=== PATIENT | male | born 1985 | race African-American/Black ===

== ENCOUNTER 2021-10-27 17:28 | Emergency (ER) | payer MEDICAID ==
[~2021-10-27] VITALS: Ht 172.7 cm; Wt 84.1 kg
[2021-10-27 18:23] LABS: BASOPHILS % (AUTO) 0.8 % (0.0-2.0); EOSINOPHILS % (AUTO) 10.4 % (1.0-6.0); HEMATOCRIT 43.5 % (41-53); HEMOGLOBIN 14.7 g/dL (13.5-17.5); LYMPHOCYTES # (AUTO) 2.3 K/uL (1.0-4.8); LYMPHOCYTES % (AUTO) 36.1 % (22.0-44.0); MEAN CORPUSCULAR HEMOGLOBIN 28.6 pg (26.0-34.0); MEAN CORPUSCULAR HGB CONC 33.8 G/dL (31.0-37.0); MEAN CORPUSCULAR VOLUME 85 fL (80-100); MONOCYTES # (AUTO) 0.8 K/uL (0.1-1.0); MONOCYTES % (AUTO) 12.8 % (2.0-9.0); NEUTROPHILS # (AUTO) 2.5 K/uL (1.8-7.7); NEUTROPHILS % (AUTO) 39.9 % (40.0-70.0); PLATELET COUNT (AUTO) 220 K/uL (150-450); RED BLOOD CELL COUNT(AUTO) 5.15 MIL/uL (4.50-5.90)
[2021-10-27 18:26] LABS: COVID AG,FIA SOURCE NASOPHARYNGEAL
[2021-10-27 18:32] LABS: ANION GAP 23 mmol/L (8-16); CALCIUM, TOTAL 9.8 mg/dL (8.8-10.5); CARBON DIOXIDE 25 mmol/L (22-29); CHLORIDE 100 mmol/L (98-107); CREATININE 0.86 mg/dL (0.60-1.30); GLUCOSE,RANDOM 100 mg/dL (70-110); POTASSIUM 4.2 mmol/L (3.5-5.1); SODIUM SERUM 148 mmol/L (136-145); UREA NITROGEN, BLOOD 15 mg/dL (7-18)
[2021-10-27 18:35] LABS: GLOMERULAR FILTR. RATE CALC > 60 mL/min (>60)
[2021-10-27 19:32] VITALS: BP 150/95
== END 2021-10-27 19:35 | disposition home or self-care (01) ==
LOC: EMS 17:36
DX: R06.09 Other forms of dyspnea (principal); Z20.822 Contact with and (suspected) exposure to COVID-19
CPT/HCPCS: 71045; 80048; 84484; 85025; 93005; 99285; 36415-L1; 36415-TC

== ENCOUNTER 2023-07-29 13:11 | Emergency (ER) | payer MEDICAID, OTHER ==
[~2023-07-29] VITALS: Ht 170.2 cm; Wt 78.2 kg
[2023-07-29 13:25] VITALS: BP 155/86; PULSE 88; RESP 14; TEMP 98.7
[2023-07-29 14:15] LABS: COVID AG,FIA SOURCE NASAL SWAB
[2023-07-29] MEDS ORDERED: ACET-66 PO (14:15)
[2023-07-29] MEDS ORDERED: IBUP-1554 PO (14:15)
[2023-07-29] MEDS ORDERED: CEPH-558 PO (14:15)
[2023-07-29 15:07] LABS: RAPID GROUP A STREP NEGATIVE (NEGATIVE)
[2023-07-29 15:12] LABS: SARS-COV2 (COVID) ANTIGEN,FIA Negative (Negative)
[2023-07-29 15:14] LABS: INFLUENZA TYPE A NEGATIVE FOR TYPE A (NEGATIVE); INFLUENZA TYPE B NEGATIVE FOR TYPE B (NEGATIVE)
== END 2023-07-29 14:30 | disposition home or self-care (01) ==
LOC: EMS 13:11
DX: H66.92 Otitis media, unspecified, left ear (principal); J02.9 Acute pharyngitis, unspecified; Z20.822 Contact with and (suspected) exposure to COVID-19
CPT/HCPCS: 87430; 87804; 99283